=== PATIENT | male | born 1995 | race Caucasian/White ===

== ENCOUNTER 2016-11-13 02:28 | Emergency (ER) | payer SELFPAY ==
[~2016-11-13] VITALS: Ht 180.3 cm; Wt 118.2 kg
[2016-11-13 02:30] VITALS: BP 153/89; PULSE 76; RESP 18; TEMP 98.4
--- NOTE | 2016-11-13 02:37 | PD ---
HPI Chief Complaint: kidney stone Time Seen by Provider: 02:32 Travel History International Travel<30 days: No Contact w/Intl Traveler<30days: No Traveled to known affect area: No History of Present Illness HPI 21-year-old male with history of kidney stones presents to the emergency department by EMS transport from [place] for right-sided flank pain radiated to the right lower quadrant multiple episodes of nausea and vomiting. Pain is similar to previous kidney stone pain. Patient went to bed feeling fine awakened 3 hours ago severe pain and nausea vomiting. Patient has taken no medication for symptom relief. Patient denies other concerns or complaints. Unable to identify exacerbating or alleviating factors find a pulse of discomfort. Patient did note dark urine upon urination. PFSH Past Medical History Narrative Medical kidney stone; nursing notes reviewed Social History Tobacco Use: Yes Allergies-Medications (Allergen,Severity, Reaction): Coded Allergies: No Known Allergies (Unverified , 11/13/16) Reported Meds & Prescriptions Reported Meds & Active Scripts Active Zofran Odt (Ondansetron Odt) 4 Mg Tab 4 Mg SL Q6HR PRN Ibuprofen 800 Mg Tab 800 Mg PO Q8H PRN Flomax (Tamsulosin HCl) 0.4 Mg Cap 0.4 Mg PO HS 7 Days Percocet (Oxycodone-Acetaminophen) 5-325 mg Tab 1 Tab PO Q6H PRN Review of Systems Except as stated in HPI: all other systems reviewed are Neg General / Constitutional: No: Fever HENT: No: Congestion Cardiovascular: No: Chest Pain or Discomfort Respiratory: No: Shortness of Breath Gastrointestinal: Positive: Vomiting, Abdominal Pain Genitourinary: Positive: Hematuria (dark urine), Flank Pain Musculoskeletal: No: Pain Skin: No Rash Neurologic: No: Weakness Psychiatric: No: Anxiety Endocrine: No: Polyuria Hematologic/Lymphatic: No: Lymph Node Enlargement Physical Exam Narrative GENERAL: Well-developed well-nourished male in obvious discomfort vomiting during interview SKIN: Warm and dry. HEAD: Normocephalic. EYES: No scleral icterus. No injection or drainage. NECK: Supple, trachea midline. No JVD or lymphadenopathy. CARDIOVASCULAR: Regular rate and rhythm without murmurs, gallops, or rubs. RESPIRATORY: Breath sounds equal bilaterally. No accessory muscle use. GASTROINTESTINAL: Abdomen soft, non-tender, nondistended. MUSCULOSKELETAL: No cyanosis, or edema. BACK: Nontender without obvious deformity. Right-sided CVA tenderness. Data Data Last Documented VS Vital Signs Date Time Temp Pulse Resp B/P (MAP) Pulse Ox O2 Delivery O2 Flow Rate FiO2 11/13/16 04:31 11/13/16 04:03 65 16 95 Room Air 11/13/16 02:30 98.4 Orders Orders Complete Blood Count With Diff (11/13/16 02:33) Basic Metabolic Panel (Bmp) (11/13/16 02:33) Urinalysis - C+S If Indicated (11/13/16 02:33) Ct Abd/Pel W/O Iv Contrast (11/13/16 02:33) Ecg Monitoring (11/13/16 02:33) Iv Access Insert/Monitor (11/13/16 02:33) Sodium Chloride 0.9% Flush (Ns Flush) (11/13/16 02:45) Ondansetron Inj (Zofran Inj) (11/13/16 02:45) Ketorolac Inj (Toradol Inj) (11/13/16 02:45) Hydromorphone Pf Inj (Dilaudid Pf Inj) (11/13/16 02:45) Sodium Chlor 0.9% 1000 Ml Inj (Ns 1000 M (11/13/16 02:45) Sodium Chlor 0.9% 1000 Ml Inj (Ns 1000 M (11/13/16 03:30) Tamsulosin (Flomax) (11/13/16 03:30) Hydromorphone Pf Inj (Dilaudid Pf Inj) (11/13/16 04:00) Labs Laboratory Tests Test 11/13/16 02:46 11/13/16 03:30 White Blood Count 10.5 TH/MM3 Red Blood Count 4.76 MIL/MM3 Hemoglobin 13.9 GM/DL Hematocrit 41.8 % Mean Corpuscular Volume 87.9 FL Mean Corpuscular Hemoglobin 29.3 PG Mean Corpuscular Hemoglobin Concent 33.3 % Red Cell Distribution Width 14.0 % Platelet Count 262 TH/MM3 Mean Platelet Volume 8.4 FL Neutrophils (%) (Auto) 71.5 % Lymphocytes (%) (Auto) 21.1 % Monocytes (%) (Auto) 5.1 % Eosinophils (%) (Auto) 1.5 % Basophils (%) (Auto) 0.8 % Neutrophils # (Auto) 7.5 TH/MM3 Lymphocytes # (Auto) 2.2 TH/MM3 Monocytes # (Auto) 0.5 TH/MM3 Eosinophils # (Auto) 0.2 TH/MM3 Basophils # (Auto) 0.1 TH/MM3 CBC Comment DIFF FINAL Differential Comment Blood Urea Nitrogen 13 MG/DL Creatinine 0.87 MG/DL Random Glucose 103 MG/DL Calcium Level 8.6 MG/DL Sodium Level 140 MEQ/L Potassium Level 3.5 MEQ/L Chloride Level 105 MEQ/L Carbon Dioxide Level 24.4 MEQ/L Anion Gap 11 MEQ/L Estimat Glomerular Filtration Rate 109 ML/MIN Urine Color JOSEE Urine Turbidity CLOUDY Urine pH 6.0 Urine Specific [place] 1.025 Urine Protein 30 mg/dL Urine Glucose (UA) NEG mg/dL Urine Ketones NEG mg/dL Urine Occult Blood LARGE Urine Nitrite NEG Urine Bilirubin NEG Urine Leukocyte Esterase NEG Urine RBC INNUM /hpf Urine WBC 3-5 /hpf Urine Squamous Epithelial Cells 0-5 /hpf Urine Bacteria NONE /hpf Microscopic Urinalysis Comment CULT NOT INDICATED MDM Medical Decision Making Medical Screen Exam Complete: Yes Emergency Medical Condition: Yes Medical Record Reviewed: Yes Interpretation(s) UA: lg blood, innumerable RBC's Last Impressions Abdomen/Pelvis CT 11/13/16 0233 Signed Impressions: Service Date/Time: Sunday, November 13, 2016 02:55 - CONCLUSION: 1. 5 x 6 mm calcified mid right ureteral calculus with mild right-sided hydroureteronephrosis. Additional punctate calculi in the mid and inferior poles of the right kidney. 2. Small fat containing bilaterally were hernias Mat Fine MD CBC & BMP Diagram 11/13/16 02:46 Calcium Level 8.6 Vital Signs Date Time Temp Pulse Resp B/P (MAP) Pulse Ox O2 Delivery O2 Flow Rate FiO2 11/13/16 03:03 68 17 144/66 (92) 98 Room Air 11/13/16 02:30 98.4 76 18 153/89 (110) Differential Diagnosis Flank pain, obstructive uropathy, pyelonephritis, UTI, appendicitis Narrative Course IV access obtained by EMS patient administered Zofran 4 mg IV Dilaudid 1 mg IV and Toradol 30 mg IV 1 L normal saline bolus CT kidney stone protocol ordered Lab values found to be in normal range patient with symptomatic relief after Zofran Toradol Dilaudid pain decreased for over [address] does show a 5 mm stone in the mid right ureter with mild hydronephrosis hydroureter Urinalysis shows large blood innumerable red blood cells but no evidence of infection total white cell count within normal range patient has been afebrile Additional dose of Dilaudid 0.5 mg IV administered along with Flomax 0.4 mg by mouth Is 4:30 AM patient feels clinically improved and is stable for outpatient management patient is aware of the adverse relationship opacities transiently was requiring procedural intervention no evidence of infection this time patient feels well give patient name of on-call urologist call office in a.m. patient will need close follow-up if he is unable to contact his urologist is has increasing pain patient is encouraged to return to the emergency department as may require admission at that time for procedural intervention patient is aware of this and understands the process of passing a stone as he has had 2 previous stents. Patient is desirous of Toradol as outpatient being discharged home. Patient be given prescription for Percocet, Zofran, ibuprofen, and Flomax. Diagnosis Primary Impression: Acute unilateral obstructive uropathy Additional Impression: Calcium ureterolithiasis Referrals: Alex Moser DO call for appointment Patient Instructions: General Instructions Additional Instructions: Increase fluid hydration Strain urine Take Flomax daily as prescribed Take pain medication as prescribed as needed as often as every 6 hours Take medication as prescribed as needed for nausea and/or vomiting Take ibuprofen/nonsteroidal anti-inflammatory medication as prescribed as needed for pain greater than 5/10 in intensity Follow-up with urologist; on-call urologist Dr. Alex Moser, call office in a.m. to schedule follow-up appointment Return to the emergency department for pain fever vomiting or any concerns no work x 2 days Med/Other Pt SpecificInfo: Prescription(s) given Scripts Ondansetron Odt (Zofran Odt) 4 Mg Tab 4 MG SL Q6HR Y for Nausea/Vomiting, #10 TAB 0 Refills Prov: Gabby Castellanos MD 11/13/16 Ibuprofen (Ibuprofen) 800 Mg Tab 800 MG PO Q8H Y for PAIN GREATER THAN 5, #15 TAB 0 Refills Prov: Gabby Castellanos MD 11/13/16 Tamsulosin (Flomax) 0.4 Mg Cap 0.4 MG PO HS for Manage Prostate Problems for 7 Days, CAP 0 Refills Prov: Gabby Castellanos MD 11/13/16 Oxycodone-Acetaminophen (Percocet) 5-325 mg Tab 1 TAB PO Q6H Y for PAIN, #12 TAB 0 Refills Prov: Gabby Castellanos MD 11/13/16 Disposition: 01 DISCHARGE HOME Condition: Stable Gabby Castellanos MD Nov 13, 2016 02:37
[2016-11-13] MEDS ORDERED: KETOROLAC TROMETHAMINE 30 MG/ML (IVP) VIAL IV PUSH ONE (02:45)
[2016-11-13] MEDS ORDERED: HYDROmorphone HCL PF 1 MG/ML VIAL IV PUSH ONE ×2 (02:45→04:00)
[2016-11-13] MEDS ORDERED: SODIUM CHLOR 0.9% 1000 ML INJ 1,000 ML IV ONE ×2 (02:45→03:30)
[2016-11-13] MEDS ORDERED: ONDANSETRON HCL 4 MG/2 ML VIAL IV PUSH ONE (02:45)
[2016-11-13] MEDS ORDERED: SODIUM CHLORIDE 0.9% FLUSH 10 ML FLUSH IVF PRN (02:45)
[2016-11-13 02:59] LABS: AUTOMATED NEUTROPHIL # 7.5 TH/MM3 (1.8-7.7); BASOPHIL # 0.1 TH/MM3 (0-0.2); BASOPHIL % 0.8 % (0.0-2.0); EOSINOPHIL # 0.2 TH/MM3 (0-0.4); EOSINOPHIL % 1.5 % (0.0-4.0); HEMATOCRIT 41.8 % (39.0-51.0); HEMO FLAGS DIFF FINAL; LYMPH % 21.1 % (9.0-44.0); LYMPHOCYTE # 2.2 TH/MM3 (1.0-4.8); MEAN CELL VOLUME 87.9 FL (80.0-100.0); MEAN CORPUSCULAR HEMOGLOBIN 29.3 PG (27.0-34.0); MEAN CORPUSCULAR HGB CONC 33.3 % (32.0-36.0); MONO % 5.1 % (0.0-8.0); NEUT % 71.5 % (16.0-70.0); PLATELET COUNT 262 TH/MM3 (150-450); RED BLOOD COUNT 4.76 MIL/MM3 (4.50-5.90); WHITE BLOOD COUNT 10.5 TH/MM3 (4.0-11.0)
[2016-11-13 03:03] VITALS: BP 144/66; PULSE 68; RESP 17; O2SAT 98
[2016-11-13 03:05] LABS: POTASSIUM 3.5 MEQ/L (3.5-5.1)
[2016-11-13 03:08] LABS: BICARBONATE 24.4 MEQ/L (21.0-32.0)
--- NOTE | 2016-11-13 03:21 | RADRPT ---
EXAM DATE/TIME: 11/13/2016 02:55 [facility] COMPARISON: No previous studies available for comparison. INDICATIONS : Nausea, vomiting, mid abdominal pian. Positive history of renal calculi. ORAL CONTRAST: No oral contrast ingested. RADIATION DOSE: 25.27 CTDIvol (mGy) MEDICAL HISTORY : Renal calculi. SURGICAL HISTORY : None. ENCOUNTER: Initial ACUITY: 1 day PAIN SCALE: 10/10 LOCATION: middle abdominal TECHNIQUE: Volumetric scanning of the abdomen and pelvis was performed. Using automated exposure control and ad justment of the mA and/or kV according to patient size, radiation dose was kept as low as reasonably achievable to obtain optimal diagnostic quality images. DICOM format image data is available electro nically for review and comparison. FINDINGS: LOWER LUNGS: The visualized lower lungs are clear. LIVER: Visualized portions of the liver are unremarkable. The bladder is normal by CT. SPLEEN: Visualized portions are unremarkable. PANCREAS: Within normal limits. KIDNEYS: Mild right-sided hydronephrosis and hydroureter extending to a 5 x 6 mm calcified calculus in the mid right ureter. Additional punctate calcified calyceal calculi in the mid and inferior poles of the ri ght kidney. Left kidney is normal in appearance without evidence for significant hydronephrosis or ra diopaque renal calculi. ADRENAL GLANDS: Within normal limits. VASCULAR: There is no aortic aneurysm. BOWEL/MESENTERY: The stomach, small bowel, and colon demonstrate no acute abnormality. Appendix is normal. There is n o free intraperitoneal air or fluid. ABDOMINAL WALL: Within normal limits. RETROPERITONEUM: There is no lymphadenopathy. BLADDER: No wall thickening or mass. REPRODUCTIVE: Within normal limits. INGUINAL: Small bilateral fat containing inguinal hernias. MUSCULOSKELETAL: Within normal limits for patient age. CONCLUSION: 1. 5 x 6 mm calcified mid right ureteral calculus with mild right-sided hydroureteronephrosis. Additi onal punctate calculi in the mid and inferior poles of the right kidney. 2. Small fat containing bilaterally were hernias Mat Fine MD on November 13, 2016 at 3:15 Board Certified Radiologist. This report was verified electronically.
[2016-11-13] MEDS ORDERED: TAMSULOSIN HCL 0.4 MG CAP PO ONE (03:30)
[2016-11-13 03:36] LABS: BLOOD, URINE LARGE (NEG); GLUCOSE,URINE NEG (NEG); KETONE, URINE NEG (NEG); NITRITE,URINE NEG (NEG)
[2016-11-13 03:42] LABS: COMMENT (UR) CULT NOT INDICATED; CULTURE IF INDICATED CULT NOT INDICATED; RBC, URINE INNUM /hpf (0-3); SQUAMOUS EPITHELIAL CELL URINE 0-5 /hpf (0-5); URINE COLOR AMBER (YELLW/STRAW)
[2016-11-13 04:03] VITALS: BP 134/76; PULSE 65; RESP 16; O2SAT 95
[2016-11-13] MEDS ORDERED: TAMS5CAP PO (04:30)
[2016-11-13] MEDS ORDERED: ZOFR4TAB3 SL (04:30)
[2016-11-13] MEDS ORDERED: IBUP800T23 PO (04:30)
[2016-11-13] MEDS ORDERED: PERC5TAB12 PO (04:30)
== END 2016-11-13 04:41 | disposition home or self-care (01) ==
LOC: PHED 02:28
DX: N13.2 Hydronephrosis with renal and ureteral calculous obstruction (principal); Z72.0 Tobacco use
CPT/HCPCS: 74176; 80048; 81001; 85025; 96361; 96374; 96375; 96376; 99285; J1170; J1885; J2405; J7030